=== PATIENT | female | born 1960 | race Hispanic/Latino ===

== ENCOUNTER 2017-01-05 09:33 | Observation (INO) | payer OTHER, BC ==
[~2017-01-05 09:33] MED LIST: EPINEPHrine Inj (1:1,000) 30mg/30ml vial ONE; LIDOCAINE W/ SODIUM BICARB 0.5 ML SYR ONE; Lactated Ringers 1,000 ML PRIMARY IV ONE; Ropivacaine 0.2% VIAL 20 ML ONE; ceFAZolin Inj 2gm (Premix) 50 ML IV ONE
[2017-01-05] MEDS ORDERED: MIDAZOLAM 5 MG/1 ML ONE (10:04)
[2017-01-05] MEDS ORDERED: fentaNYL Inj 250 MCG/5 ML VIAL ONE (10:04)
[2017-01-05] MEDS ORDERED: DEXAMETHASONE SOD PHOSPHATE 4 MG/1 ML VIAL ONE ×2 (10:04→12:38)
[2017-01-05] MEDS ORDERED: Sodium Chloride 0.9% vial 10 ML ONE (10:07)
[2017-01-05] MEDS ORDERED: LIDOCAINE MPF 2% - 5 ML (20 MG/1 ML) ONE (10:07)
[2017-01-05] MEDS ORDERED: BUPIVACAINE 0.5% W/EPI MPF -30 ML VIAL IV ONE (10:10)
[2017-01-05] MEDS ORDERED: MEPIVACAINE HCL/PF 20 MG/1 ML IV ONE (10:10)
[2017-01-05] MEDS ORDERED: LIDOCAINE W/ SODIUM BICARB 0.5 ML SYR ONE (10:45)
--- NOTE | 2017-01-05 10:59 | CRNA.PROCE ---
Nerve Block Documentation - - Type of Nerve Block Used: Left Interscalene Block (Analgesia block for Left shoulder arthroscopy.) Position for Nerve Block: Supine Moniters Used During Block: EKG, SPO2, NIBP Oxygen Sumpplented: Yes Sedation Used - Enter Amount in Comment Field: Midazolam (mg): Yes (4 mg), Fentanyl (mcg): Yes (100 mcgs) Skin Prep Used: ChloroPrep (Twice) Draped: No Technique: Nerve Stimulator Nerve Block Needle Used: Simplesurance 50 mm Stimulation Hz: 1 Stimulation Staring mA: 1.6 Stimulation Ending mA: 0.6 Local Anesthetic - Enter Amt in Comment Field: 0.5 % Bupivicaine with Epinephrine 1:200,000 (mL): Yes (20 ml in 3 ml increments), 2 % Mepivacaine (mL) : Yes (10 ml in 3 ml increments) Additives to Nerve Blocks: Dexamethasone (mL): Yes (4 mg)
[2017-01-05] MEDS ORDERED: ESMOLOL HCL 100 MG/10 ML VIAL ONE (11:08)
[2017-01-05] MEDS ORDERED: PHENYLEPHRINE 10,000 MCG/1 ML VIAL ONE (11:26)
[2017-01-05] MEDS ORDERED: Lactated Ringers 1,000 ML PRIMARY IV ONE (11:46)
[2017-01-05] MEDS ORDERED: ONDANSETRON 4 MG/2 ML VIAL ONE (12:37)
[2017-01-05] MEDS ORDERED: BETAMET ACET/BETAMET NA PH 6 MG/1 ML - 5 ML ONE (12:41)
[2017-01-05] MEDS ORDERED: BISACODYL 10 MG SUPPOSITORY RECTAL PRN (13:17)
[2017-01-05] MEDS ORDERED: ONDANSETRON 4 MG/2 ML VIAL IVP PRN (13:17)
[2017-01-05] MEDS ORDERED: KETOROLAC 15 MG/1 ML VIAL IVP PRN (13:17)
[2017-01-05] MEDS ORDERED: MAG HYDROX/AL HYDROX/SIMETH 30 ML SUSP PO PRN (13:17)
[2017-01-05] MEDS ORDERED: ACETAMINOPHEN 325 MG TABLET PO PRN (13:17)
[2017-01-05] MEDS ORDERED: NORMAL SALINE 10 ML SYRINGE FLUSH IVP PRN (13:17)
[2017-01-05] MEDS ORDERED: BISACODYL 5 MG TABLET PO PRN (13:17)
[2017-01-05] MEDS ORDERED: HYDROcodone-APAP 7.5 MG-325 MG TABLET PO PRN (13:17)
[2017-01-05] MEDS ORDERED: CALCIUM CARBONATE 500 MG (TUMS) CHEWABLE TABLET PO PRN (13:17)
[2017-01-05] MEDS ORDERED: diphenhydrAMINE 25 MG CAPSULE PO PRN (13:17)
[2017-01-05] MEDS ORDERED: MORPHINE SULFATE 2 MG/1 ML IVP PRN (13:17)
[2017-01-05] MEDS ORDERED: Ondansetron ODT Tab 8 MG TAB PO PRN (13:17)
[2017-01-05] MEDS ORDERED: Prochlorperazine Tab 10 MG TAB PO PRN (13:17)
[2017-01-05] MEDS ORDERED: IPRATROPIUM/ALBUTEROL SULFATE 3 ML NEB NEB ONE ×2 (13:43)
--- NOTE | 2017-01-05 18:38 | EKG ---
[address] [address] Measurements Intervals [place] Rate: 77 P: 49 RI: 197 QRS: 73 QRSD: 85 T: 64 QT: 382 QTc: 414 Interpretive Statements SINUS RHYTHM INTERPRETATION BASED ON A DEFAULT AGE OF 40 YEARS No previous ECG available for comparison Electronically Signed On 01-06-17 09:31:10 MST by Michael Martínez MD [email or web address]
[2017-01-05] MEDS ORDERED: MORPHINE SULFATE 4 MG/1 ML IV PRN (19:13)
[2017-01-05] MEDS ORDERED: MORPHINE SULFATE 10 MG/1 ML IV PRN (19:13)
[2017-01-05] MEDS ORDERED: MORPHINE SULFATE 2 MG/1 ML IV PRN (19:13)
--- NOTE | 2017-01-05 19:37 | PDOC ---
History and Physical - History of Present Illness Date and Time of Service: 01/05/2017 7:38 PM Chief Complaint: Aspiration during surgery History of Present Illness: This is a 56 years old female with medical history significant for history of diabetes, hypertension, hyperlipidemia, sleep apnea who came into the hospital to have the left rotator cuff surgery and was done by Dr. Ch today. Patient had LMA and she had some vomiting per my discussion with Dr. Ch so this was suctioned and she was intubated with the interscapular block also postsurgery she had a chest x-ray there was a infiltrates per radiology. It was decided that the patient be admitted to overnight for observation. Patient have some pain in her shoulder which she rated 2-3 out of 10. She is denying shortness of breath, she did have some dry heaving downstairs in the recovery. In the recovery room she did have some chest pain she reported in small area of the chest on the right side that seemed to be resolving. No other symptoms. SHe did not take her am BP medication today. Past Medical History Medical History: 1. Diabetes. 2. Hypertension. 3. Sleep apnea. 4. Hyperlipidemia Surgical History: History of LAP-BAND surgery before Past Social History: Dismal, doesn't drink, no drugs. Patient lives with her parents in [place]. Tobacco Use: Never Smoker Substance Use Type: None Alcohol Use: None Medication / Allergies Home Medications: Home Medications Medication Instructions Recorded Confirmed Type Atorvastatin Calcium [Lipitor] 1 tab PO BEDTIME 08/31/12 01/05/17 History Calcium Carbonate/Vitamin D3 1 each PO QD 08/31/12 01/05/17 History [Calcium 600-Vit D3 400 Caplet] Lisinopril/Hydrochlorothiazide 1 tab PO QD 08/31/12 01/05/17 History [Lisinopril-Hctz 20-25 mg Tab] Metformin HCl 1 tab PO BID tab 08/31/12 01/05/17 History Pyridoxine HCl [Vitamin B-6] 1 tab PO QD 08/31/12 History Vitamin B12 1 tab PO QD 08/31/12 History Glimepiride 2 mg PO q am #30 tab 02/01/13 01/05/17 Clinic Ibuprofen 4 cap PO TID cap 10/07/16 01/05/17 History Gabapentin 100 mg PO BEDTIME 01/05/17 01/05/17 History HYDROcodone/APAP 7.5/325 Tab 1 - 2 tab PO Q4H PRN #50 tab 01/05/17 Rx [[place] 7.5/325 Tab] Metoprolol Tartrate 25 mg PO BID 01/05/17 01/05/17 History Allergies/Adverse Reactions: Allergies Allergy/AdvReac Type Severity Reaction Status Date / Time No Known Drug Allergies Allergy NOT Verified 01/06/17 06:23 APPLICABLE Review of Systems - Review of Systems All Systems: Reviewed & No Additional Complaints Except as Stated Exam - Vitals Vital Signs: Vital Signs Temperature 96.8 F Temperature Source Temporal Artery Scan Pulse Rate 79 Respiratory Rate 12 Blood Pressure 190/86 Oxygen Flow Rate 4 Oxygen Delivery Method Nasal Cannula Height 5 ft 8 in Weight 216 lb - General General Appearance: POSITIVE: No Acute Distress, Cooperative, Obese - Head Head Exam: POSITIVE: Normal Inspection, Atraumatic - Eye Eye Exam: POSITIVE: Normal Appearance - ENT ENT Exam: POSITIVE: Normal Exam - Neck Neck Exam: POSITIVE: Normal Inspection - Respiratory Additional Respiratory Exam Details: There is decreased breath sound on the left side posteriorly. - Cardiovascular Cardiovascular Exam: POSITIVE: RRR - GI/Abdominal GI/Abdominal Exam: POSITIVE: Normal Bowel Sounds, Non Tender, Non Distended, Soft - Rectal Rectal Exam: POSITIVE: Deferred - External Exam: POSITIVE: Deferred - Extremities Additional Extremities Exam Details: Left shoulder in an immobilizer - Back Back Exam: POSITIVE: Normal Inspection - Neurological Neurological Exam: POSITIVE: Alert, Oriented x 3, CN II-XII Intact - Psychiatric Psychiatric Exam: POSITIVE: Flat Affect - Integumentary Integumentary Exam: POSITIVE: Normal Color Results - Labs CBC and BMP: 01/06/17 05:48 01/05/17 19:56 Assessment and Plan - Patient Problems (1) Aspiration into airway Current Visit: Yes Status: Acute Comment: I think because of her history of diabetes will put her on antibiotics order lab test and repeat the chest x-ray and lab test tomorrow and then will decide whether we need to continue antibiotics. (2) Diabetes Current Visit: Yes Status: Acute Comment: Same medications (3) Hypertension Current Visit: Yes Status: Acute Comment: Her blood pressure was fluctuating down in the recovery but she didn't take a blood pressure medication this am and when she came into the floor blood pressure is acceptable. I think will watch it and put her on a usual medication starting tomorrow. (4) Hypercholesterolemia Current Visit: Yes Status: Acute Comment: Same med
--- NOTE | 2017-01-05 19:42 | DI ---
AP CHEST X-RAY, 01/05/2017 1:54 PM : Clinical History: Aspiration during anesthesia. Previous Exam: None at this facility. On this view, the patient took a very shallow inspiration. There is no acute soft tissue or bony abno rmality. Even for this projection, there is cardiomegaly. There is no CHF. There is marked left lower lobe atelectasis but the patient had a scalene block on the left side for the surgical procedure. Th ere is a streaky density in the right lower lobe and this may represent aspiration. Followup films ar e recommended to monitor this area. There is gas in the esophagus and this probably represents an eso phageal balloon. The mediastinum is otherwise normal. There are no pulmonary nodules. Readin. There are some streaky densities in the right lower lobe and this may represent aspiration. A fidelia rt-term followup exam in a few hours is recommended when the patient is more alert and can take a ina per breath. 2. Left lower lobe atelectasis. This is consistent with the anesthesia history that the patient had a left-sided scalene block performed for the surgical procedure. 3. Cardiomegaly without CHF.
[2017-01-05] MEDS: Lactated Ringers 1,000 ML PRIMARY IV SCH ×2 (19:46→20:51)
--- NOTE | 2017-01-05 19:48 | DI ---
AP CHEST X-RAY, 01/05/2017 2:36 PM : Clinical History: Aspiration during anesthesia today. Followup film. Previous Exam: Earlier today at 1401 hours. The patient still took a shallow inspiration although it is greater in magnitude than on the previous study. There is cardiomegaly without CHF. Left lower lobe atelectasis persists and has not changed. The previously noted streaky density in the right lower lung field persists although it is not quite as dense. This still would be consistent with the clinical diagnosis of aspiration. Readin. Slight improvement of the densities in the right lower lung field that are consistent with aspira tion pneumonia. 2. No change in the appearance of the left lower lobe atelectasis that is related to the scalene blo ck performed on the same side. 3. Cardiomegaly without CHF.
[2017-01-05 20:00] LABS: BASOPHILS # (AUTO) 0.01 10*3/UL; BASOPHILS % (AUTO) 0.1 % (0-1); EOSINOPHILS % (AUTO) 0 % (0-8); HEMATOCRIT 35.1 % (37.0-47.0); HEMOGLOBIN 11.2 g/dL (12.0-16.0); IMM GRAN % (AUTO) 0.2 % (0-5); IMM GRAN# (AUTO) 0.02 10*3/UL; LYMPHOCYTES # (AUTO) 0.97 10*3/uL; LYMPHOCYTES % (AUTO) 8.1 % (10-50); MEAN CORPUSCULAR HEMOGLOBIN 27.3 PG (27-31); MEAN CORPUSCULAR HGB CONC 31.9 g/dL (33-37); MEAN PLATELET VOLUME 10.1 FL (7.4-12.2); MONOCYTES # (AUTO) 0.25 10*3/UL (0.3-0.8); MONOCYTES % (AUTO) 2.1 % (5-15); NEUTROPHILS # (AUTO) 10.75 10*3/UL; NEUTROPHILS % (AUTO) 89.5 % (50-80); RDW COEFFICIENT OF VARIATION 14.1 % (11.5-14.5); RED BLOOD COUNT 4.11 10^6/uL (4.20-5.40)
[2017-01-05 20:03] LABS: PLATELET MORPHOLOGY COMMENT NORMAL MORPHOLOGY (NORM)
[2017-01-05] MEDS ORDERED: Sodium Chloride 0.9% 100 ML IV ONE (20:04)
[2017-01-05 20:09] LABS: BLOOD UREA NITROGEN 21 mg/dL (7-22); BUN/CREATININE RATIO 26.25 (6-20); CALCIUM 9.8 mg/dL (8.7-10.7); CHLORIDE 101 meq/L (98-112); CREATININE 0.8 mg/dL (0.50-1.20); EST GLOMERULAR FILTRATION > 60 (>60 ml/min/1.73m(2)); GLUCOSE 182 mg/dL (78-110); SODIUM 140 meq/L (135-145)
[2017-01-05] MEDS: Ampicillin/Sulbactam Inj 3 GM in Sodium Chloride 0.9% 100 ML IV SCH (20:52)
[2017-01-05] MEDS: HYDROcodone/Acetaminophen 7.5/325mg/15ml cup PO PRN (20:52)
[2017-01-06] MEDS: Ampicillin/Sulbactam Inj 3 GM in Sodium Chloride 0.9% 100 ML IV SCH ×3 (02:03→15:41)
[2017-01-06] MEDS: HYDROcodone/Acetaminophen 7.5/325mg/15ml cup PO PRN ×2 (02:04→10:15)
[2017-01-06] MEDS: IBUPROFEN 400 MG TABLET PO PRN ×2 (04:33→12:35)
[2017-01-06 06:32] LABS: BASOPHILS # (AUTO) 0.01 10*3/UL; BASOPHILS % (AUTO) 0.1 % (0-1); EOSINOPHILS % (AUTO) 0 % (0-8); HEMOGLOBIN 10.1 g/dL (12.0-16.0); IMM GRAN % (AUTO) 0.1 % (0-5); IMM GRAN# (AUTO) 0.01 10*3/UL; LYMPHOCYTES # (AUTO) 1.31 10*3/uL; MEAN CORPUSCULAR HEMOGLOBIN 26.7 PG (27-31); MEAN CORPUSCULAR HGB CONC 31.6 g/dL (33-37); MEAN PLATELET VOLUME 10.3 FL (7.4-12.2); NEUTROPHILS # (AUTO) 8.55 10*3/UL; NEUTROPHILS % (AUTO) 84.8 % (50-80); RDW COEFFICIENT OF VARIATION 14.1 % (11.5-14.5); RED BLOOD COUNT 3.78 10^6/uL (4.20-5.40); WHITE BLOOD COUNT 10.08 10^3/uL (4.8-10.8)
[2017-01-06 06:39] LABS: PLATELET MORPHOLOGY COMMENT NORMAL MORPHOLOGY (NORM)
[2017-01-06] MEDS ORDERED: HYDROCHLOROTHIAZIDE 25 MG TABLET PO SCH (07:00)
[2017-01-06 07:07] VITALS: RESP 20; TEMP 98.1
--- NOTE | 2017-01-06 07:59 | ORTHO.PROG ---
Last Taken Vital Signs: Vital Signs - Last Taken Temperature 98.1 F 01/06/17 07:04 Pulse Rate 86 01/06/17 07:04 Respiratory Rate 20 01/06/17 07:04 Blood Pressure 154/91 01/06/17 07:04 Pulse Ox 91 01/06/17 07:04 Subjective: Patient's block wore off last night and was having pain. She seems to feel like she is breathing easily but still feels nauseated at times Objective: Intake and Output - 8hrs 01/05/17 01/05/17 01/06/17 01/06/17 13:59 21:59 05:59 13:59 Intake: IV 1500 300 856 Intake Oral Amount 400 Output: Output, Urine Amount 700 Output, Estimated Blood 50 Loss Amount Other: Number of Voids 1 Weight 97.976 kg 98.43 kg Weight Measurement Method Stated by Patient Vital Signs (24 hrs) Temp Pulse Pulse Resp BP BP Pulse Ox 01/06/17 07:04 98.1 F 86 20 154/91 91 01/06/17 04:51 98.3 F 74 18 146/84 93 01/06/17 01:00 98.8 F 83 20 147/69 94 01/05/17 20:01 97.8 F 97 20 153/79 94 01/05/17 19:25 97.8 F 97 20 153/79 94 01/05/17 18:45 96.8 F 79 12 190/86 01/05/17 18:00 78 12 185/75 01/05/17 17:30 78 12 174/80 01/05/17 17:00 97.8 F 83 97 20 160/82 153/79 3 01/05/17 16:30 83 12 176/88 01/05/17 16:00 86 12 166/86 01/05/17 15:45 86 11 L 182/90 01/05/17 15:30 86 11 L 187/87 01/05/17 15:20 81 12 175/88 01/05/17 15:10 88 12 183/95 01/05/17 14:55 86 12 166/86 01/05/17 14:40 96.8 F 83 13 166/109 01/05/17 14:20 96.8 F 82 12 199/120 01/05/17 14:15 78 15 189/92 01/05/17 14:05 85 10 L 185/80 01/05/17 13:55 86 14 189/80 01/05/17 13:45 88 12 194/102 01/05/17 13:40 88 11 L 192/113 01/05/17 13:35 87 11 L 200/109 01/05/17 13:30 87 11 L 196/104 01/05/17 13:23 96.8 F 87 20 176/107 01/05/17 10:06 98.1 F 81 20 156/94 Laboratory Results 01/05/17 01/06/17 Range/Units 19:56 05:48 WBC 12.00 H 10.08 (4.8-10.8) 10^3/uL RBC 4.11 L 3.78 L (4.20-5.40) 10^6/uL Hgb 11.2 L 10.1 L (12.0-16.0) g/dL Hct 35.1 L 32.0 L (37.0-47.0) % MCV 85.4 84.7 (81-99) FL MCH 27.3 26.7 L (27-31) PG MCHC 31.9 L 31.6 L (33-37) g/dL RDW Std Deviation 43.2 42.0 (39-50) fL RDW Coeff of Dejon 14.1 14.1 (11.5-14.5) % Plt Count 252 249 (140-350) 10*3/uL MPV 10.1 10.3 (7.4-12.2) FL Immature Gran % (Auto) 0.2 0.1 (0-5) % Neut % (Auto) 89.5 H 84.8 H (50-80) % Lymph % (Auto) 8.1 L 13.0 (10-50) % [place] % (Auto) 2.1 L 2.0 L (5-15) % Eos % (Auto) 0 0 (0-8) % Baso % (Auto) 0.1 0.1 (0-1) % Immature Gran # (Auto) 0.02 0.01 10*3/UL Neut # (Auto) 10.75 8.55 10*3/UL Lymph # (Auto) 0.97 1.31 10*3/uL [place] # (Auto) 0.25 L 0.20 L (0.3-0.8) 10*3/UL Eos # (Auto) 0 0 10*3/UL Baso # (Auto) 0.01 0.01 10*3/UL WBC Morphology Comment Normal morphology Normal morphology (NORM) Plt Morphology Comment Normal morphology Normal morphology (NORM) RBC Morph Comment Normal morphology Normal morphology (NORM) Sodium 140 (135-145) meq/L Potassium 4.0 (3.8-5.2) meq/L Chloride 101 (98-112) meq/L Carbon Dioxide 24 (23-33) meq/L Anion Gap 15 (5-20) BUN 21 (7-22) mg/dL Creatinine 0.8 (0.50-1.20) mg/dL Estimated GFR > 60 (>60 ml/min/1.73m(2)) BUN/Creatinine Ratio 26.25 H (6-20) Glucose 182 H (78-110) mg/dL Calculated Osmolality 297.0 H (267-292) mOsm/kg Calcium 9.8 (8.7-10.7) mg/dL Troponin I < 0.012 (< 0.040) ng/mL The patient has good motion of the fingers wrist and digits normal sensory exam brace is in place. Assessment: Left biceps tenodesis subacromial and Kemi, patient had aspiration the time of surgery chest x-ray was equivocal but also was having chest pain so she was admitted for the chest pain and also the aspiration Plan: Patient had an x-ray this morning we'll see what the hospitalist thinks, from an orthopedic standpoint if she has no active medical issues such as a burrowing aspiration pneumonia or issues with the chest pain that she was having and she can return home. The other issue is question whether her gastric sleeve may be too tight since she seems to have trouble keeping food down. This was adjusted a week ago. This was done in [facility] and maybe she needs to discuss this with the office in [facility].
[2017-01-06] MEDS: Lactated Ringers 1,000 ML PRIMARY IV SCH (08:14)
--- NOTE | 2017-01-06 08:38 | DI ---
AP CHEST X-RAY, 01/06/2017 7:00 AM : Clinical History: Aspiration. Previous Exam: 01/05/2017 at 1719 hours. There is cardiomegaly without CHF. There is better aeration of the left lower lobe. The left lower lo be atelectasis was consistent with the clinical history of a left scalene nerve block. The right lowe r lobe infiltrate also shows improvement. There is some discoid atelectasis probably in the lingular segment. Readin. Improvement of the right lower lobe infiltrate since the earlier study. 2. Left lower lobe atelectasis that was secondary to the left scalene nerve block also shows improve ment. 3. Cardiomegaly without CHF.
[2017-01-06] MEDS ORDERED: metFORMIN 500 MG TABLET PO SCH (09:00)
[2017-01-06] MEDS ORDERED: LISINOPRIL 20 MG TABLET PO SCH (09:00)
--- NOTE | 2017-01-06 09:48 | CRNA.PROGR ---
Anesthesia Note Anesthesia Progress Note: Post Left shoulder arthroscopy 01/05/17. Refluxed gastric contents immediately with induction Propofol. Suctioned, intubated. Larynx and vocal cords were clean. ET tube placed with haste. No gastric contents showed in ET tube. No difficulties with SPO2 or ventilatory pressures. See anesthesia record. In recovery had a chest xray done. Gave respiratory treatment. Refered pt to hospitalist for overnight observation and treatment for above. This am pt alert awake no respiratory complaints. Hospitalist had not seen her yet today. Talked with family. Vital Signs (24 hrs) Temp Pulse Pulse Resp BP BP Pulse Ox 01/06/17 07:04 98.1 F 86 20 154/91 91 01/06/17 04:51 98.3 F 74 18 146/84 93 01/06/17 01:00 98.8 F 83 20 147/69 94 01/05/17 20:01 97.8 F 97 20 153/79 94 01/05/17 19:25 97.8 F 97 20 153/79 94 01/05/17 18:45 96.8 F 79 12 190/86 01/05/17 18:00 78 12 185/75 01/05/17 17:30 78 12 174/80 01/05/17 17:00 97.8 F 83 97 20 160/82 153/79 3 01/05/17 16:30 83 12 176/88 01/05/17 16:00 86 12 166/86 01/05/17 15:45 86 11 L 182/90 01/05/17 15:30 86 11 L 187/87 01/05/17 15:20 81 12 175/88 01/05/17 15:10 88 12 183/95 01/05/17 14:55 86 12 166/86 01/05/17 14:40 96.8 F 83 13 166/109 01/05/17 14:20 96.8 F 82 12 199/120 01/05/17 14:15 78 15 189/92 01/05/17 14:05 85 10 L 185/80 01/05/17 13:55 86 14 189/80 01/05/17 13:45 88 12 194/102 01/05/17 13:40 88 11 L 192/113 01/05/17 13:35 87 11 L 200/109 01/05/17 13:30 87 11 L 196/104 03/07/17 13:23 96.8 F 87 20 176/107 01/05/17 10:06 98.1 F 81 20 156/94 Laboratory Results 01/05/17 01/06/17 Range/Units 19:56 05:48 WBC 12.00 H 10.08 (4.8-10.8) 10^3/uL RBC 4.11 L 3.78 L (4.20-5.40) 10^6/uL Hgb 11.2 L 10.1 L (12.0-16.0) g/dL Hct 35.1 L 32.0 L (37.0-47.0) % MCV 85.4 84.7 (81-99) FL MCH 27.3 26.7 L (27-31) PG MCHC 31.9 L 31.6 L (33-37) g/dL RDW Std Deviation 43.2 42.0 (39-50) fL RDW Coeff of Dejon 14.1 14.1 (11.5-14.5) % Plt Count 252 249 (140-350) 10*3/uL MPV 10.1 10.3 (7.4-12.2) FL Immature Gran % (Auto) 0.2 0.1 (0-5) % Neut % (Auto) 89.5 H 84.8 H (50-80) % Lymph % (Auto) 8.1 L 13.0 (10-50) % [place] % (Auto) 2.1 L 2.0 L (5-15) % Eos % (Auto) 0 0 (0-8) % Baso % (Auto) 0.1 0.1 (0-1) % Immature Gran # (Auto) 0.02 0.01 10*3/UL Neut # (Auto) 10.75 8.55 10*3/UL Lymph # (Auto) 0.97 1.31 10*3/uL [place] # (Auto) 0.25 L 0.20 L (0.3-0.8) 10*3/UL Eos # (Auto) 0 0 10*3/UL Baso # (Auto) 0.01 0.01 10*3/UL WBC Morphology Comment Normal morphology Normal morphology (NORM) Plt Morphology Comment Normal morphology Normal morphology (NORM) RBC Morph Comment Normal morphology Normal morphology (NORM) Sodium 140 (135-145) meq/L Potassium 4.0 (3.8-5.2) meq/L Chloride 101 (98-112) meq/L Carbon Dioxide 24 (23-33) meq/L Anion Gap 15 (5-20) BUN 21 (7-22) mg/dL Creatinine 0.8 (0.50-1.20) mg/dL Estimated GFR > 60 (>60 ml/min/1.73m(2)) BUN/Creatinine Ratio 26.25 H (6-20) Glucose 182 H (78-110) mg/dL Calculated Osmolality 297.0 H (267-292) mOsm/kg Calcium 9.8 (8.7-10.7) mg/dL Troponin I < 0.012 (< 0.040) ng/mL I spoke with Radiologist this am. Chest xray shows improvement over yesterday. Continue care as ordered. I anticipate her discharge home today. Alexandra Buitrago MS, [employer] WORK[employer]
--- NOTE | 2017-01-06 14:41 | DCSUMMARY ---
Hospitalization Summary Hospital Course: Final Discharge Diagnosis: Current Visit Problems Problem Status Priority Diagnosed Code Aspiration into airway Acute T17.908A Diabetes Acute E11.9 Hypercholesterolemia Acute E78.00 Hypertension Acute I10 Diagnostic Data, Laboratory Data, and Procedures of Signifigance: History and Physical pertinent to Admission: Past Medical History Medical History: 1. Diabetes. 2. Hypertension. 3. Sleep apnea. 4. Hyperlipidemia Surgical History: History of LAP-BAND surgery before Past Social History: Dismal, doesn't drink, no drugs. Patient lives with her parents in [place]. Tobacco Use: Never Smoker Substance Use Type: None Alcohol Use: None Course of Hospitalization: This very nice 56-year-old female for which the hospitalist team was consulted for possible aspiration postop. This patient has a history of diabetes, hypertension, hyperlipidemia gastric bypass surgery, sleep apnea admitted to the hospital to have a left rotator cuff repair as an outpatient by Dr. Ch. She was admitted overnight for observation she was started on Unasyn white count normalized when I did check her oxygen she was around 90-93 on resting and when I ambulated the patient she dropped down to 86%. I will give her Avelox for 9 more days total for the milligrams to treat her aspiration pneumonia I also ordered oxygen for her IV discussed the case with her mother who she lives with and sister who she will be visiting with the here in [place] she will have a follow-up with her primary care physician in [place] to see if she can remove the oxygen she is stable and improved improved really like to be discharged home. Postop pain meds and instructions for her rotator cuff surgery was handled by the orthopedic surgeon Dr. Ch continue other usual medications for other medical issues On the date of discharge, the patient was examined: Gen.: No acute distress, alert, nontoxic Heart: Regular rate and rhythm, no murmurs, clicks, gallops, or rubs Lungs: Clear to auscultation bilaterally, breathing is nonlabored Abdomen/GI: Normal tones on auscultation, soft, nontender, nondistended Musculoskeletal/extremities: No clubbing, cyanosis, or edema Vitals reviewed and are listed below Assessment and Plan: 1. As per discharge assessments above 2. Disposition: Home 3. Condition on discharge, stable and improved. 4. Diet: regular diet 5. Activities: resume normal activities 6. Follow-Up: Dr. Ch and primary care physician in [place] 1. PCP 2. 7. Medications at the Time of Discharge: Home Medications Medication Instructions Recorded Confirmed Type Atorvastatin Calcium [Lipitor] 1 tab PO BEDTIME 08/31/12 01/05/17 History Calcium Carbonate/Vitamin D3 1 each PO QD 08/31/12 01/05/17 History [[place]cium 600-Vit D3 400 Caplet] Lisinopril/Hydrochlorothiazide 1 tab PO QD 08/31/12 01/05/17 History [Lisinopril-Hctz 20-25 mg Tab] Metformin HCl 1 tab PO BID tab 08/31/12 01/05/17 History Pyridoxine HCl [Vitamin B-6] 1 tab PO QD 08/31/12 History Vitamin B12 1 tab PO QD 08/31/12 History Glimepiride 2 mg PO q am #30 tab 02/01/13 01/05/17 Clinic Ibuprofen 4 cap PO TID cap 10/07/16 01/05/17 History Gabapentin 100 mg PO BEDTIME 01/05/17 01/05/17 History HYDROcodone/APAP 7.5/325 Tab 1 - 2 tab PO Q4H PRN #50 tab 01/05/17 Rx [[place] 7.5/325 Tab] Metoprolol Tartrate 25 mg PO BID 01/05/17 01/05/17 History Moxifloxacin HCl [Avelox] 400 mg PO DAILY #9 tablet 01/06/17 Rx 8. Time, care, counseling and coordination of care for this discharge is greater than 30 minutes. Exam - Vitals Vital Signs: Vital Signs Temperature 98.1 F Temperature Source Oral Pulse Rate [Pulse Oximeter] 76 Pulse Rate 79 Respiratory Rate 20 Blood Pressure [Right Arm] 124/55 Blood Pressure 190/86 Pulse Ox 94 Oxygen Flow Rate 1 Oxygen Flow Rate 4 Oxygen Delivery Method Nasal Cannula Height 5 ft 8 in Weight 101.333 kg
[2017-01-06] MEDS ORDERED: ATORVASTATIN 40 MG TABLET PO SCH (21:00)
--- NOTE | 2017-01-08 11:52 | OPS SHOULD ---
Diagnosis : Left Rotator Cuff and Biceps Tenodesis Referral Reason: Instruction in Activities of Daily Living/Shoulder Cryo Cuff O: The patient was instructed in activities of daily living including dressing and bathing, as well as shoulder do's and don'ts. The patient was issued a cryo cuff for the left shoulder and instructed in its proper use and care. P: No further therapy is indicated at this time. The patient will begin outpatient physical therapy. MARIE
== END 2017-01-06 15:36 | disposition home or self-care (01) ==
LOC: SDSC 09:33 → MED/SURG 17:19
PROVIDERS: ADMIT Internal Medicine; ATTEND Internal Medicine
DX: S43.432A Superior glenoid labrum lesion of left shoulder, initial encounter (principal); M75.52 Bursitis of left shoulder; E11.9 Type 2 diabetes mellitus without complications; I10 Essential (primary) hypertension; E78.00 Pure hypercholesterolemia, unspecified; T17.908A Unspecified foreign body in respiratory tract, part unspecified causing other injury, initial encounter; J95.88 Other intraoperative complications of respiratory system, not elsewhere classified
CPT/HCPCS: 29824; 29826; 29828; 36415; 71010 ×2; 80048; 84484; 85025 ×2; 87641; 93005; 93010; 94150; 96365; 97530; A4216; J0171; J0690; J0702; J2704; J2795; J3010; J7620; S0020; J0295; J0670; J1100; J1885; J2001; J2250; J2270; J2370; J2405; J7050; J7120

== ENCOUNTER → 2017-01-15 | Outpatient (CLI) | payer OTHER, BC | LOC: MMPC 10:00 | PROVIDERS: ATTEND Orthopaedic Surgery | DX: S43.432D Superior glenoid labrum lesion of left shoulder, subsequent encounter (principal); M75.22 Bicipital tendinitis, left shoulder; M19.012 Primary osteoarthritis, left shoulder; M75.42 Impingement syndrome of left shoulder ==